=== PATIENT | male | born 1950 | race Caucasian/White ===

== ENCOUNTER 2021-10-12 10:31 | Day surgery (SDC) | payer OTHER ==
[~2021-10-12] VITALS: Ht 177.8 cm; Wt 120.3 kg
[~2021-10-12 10:31] MED LIST: ACET325 PO; ASPI81CH PO; BUPR150ER PO; Bactrim Ds Tab1 EACH PO; CEPH500 PO; CITA20 PO; CLON1 PO; COLCRYS0.6 MG PO; ENAL10 PO; Flomax0.4 MG PO; LOVA20 PO; Percocet 5-3251 EACH PO
== END 2021-10-12 13:27 | disposition home or self-care (01) ==
LOC: ORSCSDS 10:31
PROVIDERS: Student in an Organized Health Care Education/Training Program
PROC: 0DBN8ZX Excision of Sigmoid Colon, Via Natural or Artificial Opening Endoscopic, Diagnostic (ICD-10-PCS; principal; 2021-10-12 13:30)
PROC: 0DBL8ZX Excision of Transverse Colon, Via Natural or Artificial Opening Endoscopic, Diagnostic (ICD-10-PCS; principal; 2021-10-12 13:30)
PROC: 0DBM8ZX Excision of Descending Colon, Via Natural or Artificial Opening Endoscopic, Diagnostic (ICD-10-PCS; principal; 2021-10-12 13:30)
PROC: 0DBK8ZX Excision of Ascending Colon, Via Natural or Artificial Opening Endoscopic, Diagnostic (ICD-10-PCS; principal; 2021-10-12 13:30)
PROC: 0DBH8ZX Excision of Cecum, Via Natural or Artificial Opening Endoscopic, Diagnostic (ICD-10-PCS; principal; 2021-10-12 13:30)
DX: Z12.11 Encounter for screening for malignant neoplasm of colon (principal); Z86.010 Personal history of colon polyps; D12.3 Benign neoplasm of transverse colon; D12.2 Benign neoplasm of ascending colon; D12.0 Benign neoplasm of cecum; D12.4 Benign neoplasm of descending colon; D12.5 Benign neoplasm of sigmoid colon; K57.30 Diverticulosis of large intestine without perforation or abscess without bleeding; K64.8 Other hemorrhoids; I10 Essential (primary) hypertension; E78.5 Hyperlipidemia, unspecified; G47.33 Obstructive sleep apnea (adult) (pediatric); E66.01 Morbid (severe) obesity due to excess calories; Z68.38 Body mass index [BMI] 38.0-38.9, adult; Z79.82 Long term (current) use of aspirin; Z79.899 Other long term (current) drug therapy
CPT/HCPCS: 88305; J2405; J2704; J7120

== ENCOUNTER 2023-06-15 09:25 | Day surgery (SDC) | payer OTHER ==
[~2023-06-15] VITALS: Ht 177.8 cm; Wt 121.8 kg
--- NOTE | 2023-06-15 10:05 | NUR ---
06/15/23 Ivette Russell PT HAD TOAST WITH PEANUT BUTTER AND COFFEE WITH CREAM AT 0700 TODAY. PT ELECTED TO PROCEED WITH THE PROCEEDURE WITHOUT SEDATION TODAY.
[2023-06-15 12:05] VITALS: BP 121/72
== END 2023-06-15 12:54 | disposition home or self-care (01) ==
LOC: ORSCSDS 09:25
PROVIDERS: Orthopaedic Surgery
PROC: 01N54ZZ Release Median Nerve, Percutaneous Endoscopic Approach (ICD-10-PCS; principal; 2023-06-15 11:00)
DX: G56.01 Carpal tunnel syndrome, right upper limb (principal); Z85.46 Personal history of malignant neoplasm of prostate; Z79.82 Long term (current) use of aspirin; Z79.899 Other long term (current) drug therapy
CPT/HCPCS: J2250; J7120

== ENCOUNTER 2023-08-08 09:08 | Day surgery (SDC) | payer OTHER ==
[~2023-08-08] VITALS: Ht 177.8 cm; Wt 118.8 kg
[2023-08-08 09:35] VITALS: BP 163/85
[2023-08-08 10:21] VITALS: BP 133/79
[2023-08-08 10:30] VITALS: BP 113/64
[2023-08-08 10:45] VITALS: BP 140/79
--- NOTE | 2023-08-08 11:06 | NUR ---
Patient up to Ambulate independently. Gait steady. Discharge instructions reviewed with patient. Patient verbalizes understanding. Copy given to patient to take home. Patient States Post-Procedure ride home has been arranged. PT GETTING RIDE FROM [facility], OK'D PER DR PRADO. PT AWAITING RIDE FROM [facility], TO BE HERE AROUND 11:40. DISCUSSED WITH [employer] SUPERINTENDENT.
--- NOTE | 2023-08-08 11:31 | NUR ---
PT OUT OF STEP/HOLDING BY WC TO HAVE RIDE HOME FROM [facility].
--- NOTE | 2023-08-08 12:41 | NUR ---
08/08/23 1241 Cori Howell LATE ENTRY [id number]* History, Chart, Medications and Allergies reviewed before start of procedure.MONITOR INTACT WITH CONTINUOUS PULSE OXIMETRY, CONTINUOUS END TITAL CO2, AND INTERMITTENT BLOOD PRESSURE.3-LEAD EKG REVIEWED WITH PHYSICIAN PRIOR TO START OF PROCEDURE.O2 VIA N/C INTACT THROUGHOUT SEDATION/PROCEDURE.SEE ANESTHESIA RECORD.
== END 2023-08-08 22:52 | disposition home or self-care (01) ==
LOC: ORSCMMR 09:08
PROVIDERS: Internal Medicine Gastroenterology
PROC: 0DJD8ZZ Inspection of Lower Intestinal Tract, Via Natural or Artificial Opening Endoscopic (ICD-10-PCS; principal; 2023-08-08 10:30)
DX: Z86.010 Personal history of colon polyps (principal); K57.30 Diverticulosis of large intestine without perforation or abscess without bleeding; I10 Essential (primary) hypertension; G47.30 Sleep apnea, unspecified; F32.A Depression, unspecified; E78.00 Pure hypercholesterolemia, unspecified; E66.01 Morbid (severe) obesity due to excess calories; Z85.46 Personal history of malignant neoplasm of prostate; Z68.41 Body mass index [BMI] 40.0-44.9, adult; Z79.82 Long term (current) use of aspirin; Z79.899 Other long term (current) drug therapy
CPT/HCPCS: J2405; J2704; J7120

== ENCOUNTER 2024-07-18 09:01 | Day surgery (SDC) | payer OTHER ==
[~2024-07-18] VITALS: Ht 177.8 cm; Wt 118.3 kg
[~2024-07-18 09:01] MED LIST changes: +Lactated Ringer's 1,000 ML IV ONE
[2024-07-18] MEDS ORDERED: TRAZ50 PO (09:32)
[2024-07-18] MEDS ORDERED: Lactated Ringer's 1,000 ML IV ONE (09:42)
--- NOTE | 2024-07-18 09:47 | NUR ---
07/18/24 0947 Ivette Amador PER PT TODAY LOCAL ONLY, HAD RIGHT ENDOSCOPIC CARPAL TUNNEL ON 06/15/23, NO ISSUES WITH LOCAL ONLY. SUZIE NEFF SPOKE WITH PT WELL PRIOR TO ADMISSIONS TO DISCUSS LOCAL ONLY OPTION. PT DID CONSUME COFFEE WITH CREAM AT 0700 WITH A TELUGU MUFFIN AND PEANUT BUTTER.
[2024-07-18 11:00] VITALS: BP 141/74
== END 2024-07-18 11:24 | disposition home or self-care (01) ==
LOC: ORSCSDS 09:01
PROVIDERS: Orthopaedic Surgery
PROC: 01N54ZZ Release Median Nerve, Percutaneous Endoscopic Approach (ICD-10-PCS; principal; 2024-07-18 10:30)
DX: G56.02 Carpal tunnel syndrome, left upper limb (principal); I10 Essential (primary) hypertension; F41.9 Anxiety disorder, unspecified; Z79.82 Long term (current) use of aspirin; Z79.899 Other long term (current) drug therapy
CPT/HCPCS: J7120

== ENCOUNTER 2025-04-03 08:21 | Day surgery (SDC) | payer OTHER ==
[~2025-04-03] VITALS: Ht 177.8 cm; Wt 119.2 kg
[~2025-04-03 08:21] MED LIST changes: -Lactated Ringer's 1,000 ML IV ONE; +Lactated Ringer's 1,000 ML IV SCH; +TAMS.4ER PO; +TRAZ100 PO; +Vitamin D1000 UNI1 PO
[2025-04-03 08:52] VITALS: BP 143/76
--- NOTE | 2025-04-03 09:04 | NUR ---
Ambulatory in Day Surgery. History, Chart, Medications and Allergies reviewed before start of procedure. Lungs clear T/O to Auscultation. Patient confirms NPO status and agrees with scheduled surgery. Pre-Op teaching done. Pt verbalizes understanding. Patient States Post-Procedure ride home has been arranged.
[2025-04-03] MEDS ORDERED: propofoL 40 ML IV ONE (10:09)
--- NOTE | 2025-04-03 10:47 | NUR ---
04/03/25 1047 Cori Howell ENDO 1 @ 1022- History, Chart, Medications and Allergies reviewed before start of procedure.MONITOR INTACT WITH CONTINUOUS PULSE OXIMETRY, CONTINUOUS END TITAL CO2, 3-LEAD EKG AND INTERMITTENT BLOOD PRESSURE.3-LEAD EKG REVIEWED WITH PHYSICIAN PRIOR TO START OF PROCEDURE.O2 VIA POM INTACT THROUGHOUT SEDATION/PROCEDURE.VINH GOMES PROVIDING MAC-SEE ANESTHESIA RECORD.
[2025-04-03 10:54] VITALS: BP 134/67
--- NOTE | 2025-04-03 10:56 | NUR ---
REPORT RECEIVED FROM AUGUSTUS PIEDRA AND VINH DELGADO. VSS. PT ON RA. PT A&OX4. PT ABLE TO REPOSITION SELF IN BED. PT REQUESTING PO FLUIDS AND TOLERATING THEM WELL. PT DENIES PAIN, NAUSEA OR OTHER DISCOMFORTS.
[2025-04-03 11:04] VITALS: BP 143/71
--- NOTE | 2025-04-03 11:18 | NUR ---
Patient up to Ambulate independently. Gait steady AND CONSISTENT WITH PT BASELINE. VSS AND CONSISTENT WITH PT BASELINE. PT HAS NO COMPLAINTS AND VERBALIZES READINESS TO GO HOME. Discharge instructions reviewed with patient. Patient verbalizes understanding. Copy given to patient to take home. Patient States Post-Procedure ride home has been arranged. Discharged via wheelchair to private car for ride home. PT BELONGINGS RETURNED TO PT.
== END 2025-04-03 11:19 | disposition home or self-care (01) ==
LOC: ORSCMMR 08:21 → ORD 09:30 → ORSCMMR 09:30
PROVIDERS: Internal Medicine Gastroenterology
PROC: 0DBM8ZX Excision of Descending Colon, Via Natural or Artificial Opening Endoscopic, Diagnostic (ICD-10-PCS; principal; 2025-04-03 09:30)
DX: Z12.11 Encounter for screening for malignant neoplasm of colon (principal); Z86.0100 Personal history of colon polyps, unspecified; D12.4 Benign neoplasm of descending colon; E78.5 Hyperlipidemia, unspecified; G47.33 Obstructive sleep apnea (adult) (pediatric); F32.A Depression, unspecified; E66.9 Obesity, unspecified; Z68.37 Body mass index [BMI] 37.0-37.9, adult; Z79.82 Long term (current) use of aspirin; Z79.899 Other long term (current) drug therapy
CPT/HCPCS: 88305; J2704; J7120

== ENCOUNTER 2025-05-29 10:58 | Emergency (ER) | payer OTHER ==
[~2025-05-29] VITALS: Ht 177.8 cm; Wt 117.9 kg
[~2025-05-29 10:58] MED LIST changes: -Lactated Ringer's 1,000 ML IV SCH
[2025-05-29 11:31] VITALS: BP 132/71
== END 2025-05-29 13:07 | disposition home or self-care (01) ==
LOC: ER 10:58
DX: S50.812A Abrasion of left forearm, initial encounter (principal); W22.8XXA Striking against or struck by other objects, initial encounter; Z59.89 Other problems related to housing and economic circumstances
CPT/HCPCS: 99282